=== PATIENT | female | born 1960 | race Hispanic/Latino ===

== ENCOUNTER → 2020-03-04 | Outpatient (CLI) | payer OTHER ==
[~2020-03-04] MED LIST: Z.0.CIPRO500 MG PO; Z.0.CITALOPRAM HBR10 PO; Z.0.NORCO 5-325 TA1 PO; Z.0.PHENERGAN25 M1 PO; Z.0.PREDNISONE20 MG PO; [UNRECOGNIZED DRUG - OTHER] PO
--- NOTE | 2020-03-04 14:30 | Diagnostic Imaging Report ---
US Guided FNA of Thyroid gland. History: Nodule in the thyroid gland. Wire Lather: Chucho Macdonald MD. Binitrotoluene Operator: None Modality: Ultrasound. Sedation: No sedation was utilized. Anesthesia: 1% lidocaine local infiltration. Estimated blood loss: < 5 cc. Technique: Informed written consent was obtained. Discussion of risks, benefits, and alternatives were made with the patient. The patient expressed understanding and agreed to proceed. A universal timeout was performed prior to starting the procedure. Maximal sterile precautions were utilized. The operators used personal protective equipment and sterile gloves. A preliminary ultrasonography was performed to assess the target and determine a safe access site. It showed the target nodule in the target lobe of the thyroid gland. Pertinent ultrasound images were secured to the PACS for documentation. A neck access site was selected and sterilely prepped and draped. Local anesthesia was administered. Using aseptic precautions, real-time ultrasonographic guidance, a 25-gauge needle was advanced into the target nodule followed by performance of FNA. The specimen was handed over to a scooper for processing. Using an identical technique, additional passes were made. Hemostasis was achieved by gentle manual compression. An aseptic dressing was applied. After recovery, the patient was discharged from the department in stable condition. Complications: None immediate Specimen: 3 FNA passes. Impression: Successful ultrasound-guided FNA of a suspicious nodule in the right lobe of the thyroid gland as described above. Thank you for the opportunity to assist in the care of your patient. Signed by: Chucho Macdonald MD on 03/04/2020 2:27 PM
== END ==
LOC: US 12:03
PROVIDERS: ATTEND Otolaryngology
DX: E04.2 Nontoxic multinodular goiter (principal)
CPT/HCPCS: 10005; 88112; 88172; 88173; 88305; U0002